=== PATIENT | male | born 1970 | race Caucasian/White ===

== ENCOUNTER → 2020-06-15 | Outpatient (CLI) | payer OTHER ==
[~2020-06-15] MED LIST: IBU800 MG PO; ROBAXIN 750 MG750 MG PO; VITAMIN D PO; ZINC PO
== END ==
LOC: OPSV2 11:17
DX: Z01.812 Encounter for preprocedural laboratory examination (principal)

== ENCOUNTER 2020-06-17 08:20 | Day surgery (SDC) | payer OTHER ==
[~2020-06-17] VITALS: Ht 180.3 cm; Wt 93.0 kg
[2020-06-17 15:32] LABS: RED BLOOD COUNT 5.34 M/UL (4.20-5.50); WHITE BLOOD COUNT 7.5 K/UL (4.5-11.0)
[2020-06-17 15:53] LABS: BUN/CREATININE RATIO 21 (0-10)
[2020-06-24 19:11] LABS: 7-AMINOCLONAZEPAM Negative (.); ALPRAZOLAM Negative (.); BENZODIAZEPINES CONFIRM Positive (.); CHLORDIAZEPOXIDE Negative (.); CLONAZEPAM Negative (.); DESALKYLFLURAZEPAM Negative (.); DESMETHYLCHLORDIAZEPOXIDE Negative (.); DESMETHYLDIAZEPAM Negative (.); DIAZEPAM Negative (.); FLURAZEPAM Negative (.); LORAZEPAM Negative (.); MIDAZOLAM 2 ng/mL (.); OXAZEPAM Negative (.); TEMAZEPAM Negative (.); TRIAZOLAM Negative (.)
== END 2020-06-18 10:58 | disposition home or self-care (01) ==
LOC: OR 08:20 → M/S 08:20 → OR 12:30 → M/S 16:41 → OR 06-18 10:58
PROVIDERS: Anesthesiology; Orthopaedic Surgery
PROC: 0RNK4ZZ Release Left Shoulder Joint, Percutaneous Endoscopic Approach (ICD-10-PCS; principal; 2020-06-17 12:30)
PROC: 3E0T3BZ Introduction of Anesthetic Agent into Peripheral Nerves and Plexi, Percutaneous Approach (ICD-10-PCS; 2020-06-17 12:30)
DX: M75.02 Adhesive capsulitis of left shoulder (principal); M75.112 Incomplete rotator cuff tear or rupture of left shoulder, not specified as traumatic; M65.812 Other synovitis and tenosynovitis, left shoulder; M75.52 Bursitis of left shoulder; F41.9 Anxiety disorder, unspecified; G93.40 Encephalopathy, unspecified; Z20.822 Contact with and (suspected) exposure to COVID-19; Z79.899 Other long term (current) drug therapy
CPT/HCPCS: 36415; 70450; 80048; 80307; 82962; 85027; C1713; J0171; J0592; J0690; J1100; J2001; J2250; J2704; J2795; J3010; J7120